=== PATIENT | male | born 1980 | race African-American/Black ===

== ENCOUNTER 2016-08-12 14:30 | Emergency (ER) | payer MEDICAID, OTHER ==
[~2016-08-12] VITALS: Ht 177.8 cm; Wt 78.0 kg
--- NOTE | 2016-08-12 15:12 | PD ---
HPI Chief Complaint: Oral / Dental Pain or Problem Time Seen by Provider: 15:12 Travel History International Travel<30 days: No Contact w/Intl Traveler<30days: No Traveled to known affect area: No History of Present Illness HPI 35-year-old [place] male presents the emergency department with approximately one week history of dental pain in the #1 and #32 teeth. He has had swelling of the right lower jaw. He has been trying to use over-the- counter ibuprofen and anesthetic without improvement. Patient denies fever, chills, but has difficulties eating secondary to pain. He states his throat is normal. He has no local dentist. He has no known drug allergies. His pain is currently 6 out of 10. [facility] Social History Alcohol Use: Yes Tobacco Use: No Substance Use: No Allergies-Medications (Allergen,Severity, Reaction): Coded Allergies: No Known Allergies (Unverified , 08/12/16) Review of Systems General / Constitutional: No: Fever Eyes: No: Visual changes HENT: Positive: Dental Difficulties, No: Headaches, Sore Throat, Rhinitis, Congestion, Nosebleed, Neck Stiffness, Neck Pain, Gingival Bleeding, Earache Cardiovascular: No: Chest Pain or Discomfort Respiratory: No: Shortness of Breath Gastrointestinal: No: Abdominal Pain Genitourinary: No: Dysuria Musculoskeletal: No: Pain Skin: No Rash Neurologic: No: Weakness Psychiatric: No: Depression Endocrine: No: Polydipsia Hematologic/Lymphatic: No: Easy Bruising Physical Exam Narrative GENERAL: Patient appears in mild to moderate distress. SKIN: Warm and dry. Normal color. Normal turgor. No erythema. HEAD: Atraumatic. Normocephalic. Patient has mild swelling over the right lateral lower jaw. EYES: Pupils equal and round. No scleral icterus. No injection or drainage. ENT: No nasal bleeding or discharge. Mucous membranes pink and moist. Patient is obvious caries with swollen gingiva to the #1 and #32 teeth. There is no significant abscess. Pharynx is normal. Airway is patent. Uvula is midline. TMs are clear bilaterally. NECK: Trachea midline. Supple and nontender without lymphadenopathy. CARDIOVASCULAR: Regular rate and rhythm. GASTROINTESTINAL: Abdomen soft, non-tender, nondistended. Hepatic and splenic margins not palpable. MUSCULOSKELETAL: Extremities without clubbing, cyanosis, or edema. No obvious deformities. NEUROLOGICAL: Awake and alert. No obvious cranial nerve deficits. Motor grossly within normal limits. Five out of 5 muscle strength in the arms and legs. Normal speech. PSYCHIATRIC: Appropriate mood and affect; insight and judgment normal. Data Data Orders Penicillin V Potassium (Veetids) (08/12/16 15:30) Lvew-Ukdl-Dvvf Liq (Magic Mouthwash Adul (08/12/16 15:30) [facility] Medical Decision Making Medical Screen Exam Complete: Yes Emergency Medical Condition: Yes Differential Diagnosis Dental caries. Dental pain. Dental abscess. Narrative Course Patient is felt to be medically stable at time of exam. Patient is given his first dose of Pen-Vee K 500 mg by mouth as well as Magic mouthwash. Patient was discharged home with Pen-Vee K 500 mg 4 times a day 10 days. Patient is given ibuprofen 800 mg 3 times daily with food #30. Patient is given acetaminophen 500 mg 2 tabs every 6 hours when necessary pain # 16. Patient is given a prescription for Magic mouthwash 5-10 mL swish and spit every 2 hours when necessary for dental pain 120 mL with no refill. Patient is to seek dental care as soon as possible. Patient can return to emergency Department with worsening symptoms as needed. Diagnosis Primary Impression: Dental abscess Referrals: Dentist Patient Instructions: Dental Abscess (ED), Dental Caries (ED), General Instructions Additional Instructions: Patient is given his first dose of Pen-Vee K 500 mg by mouth as well as Magic mouthwash. Patient was discharged home with Pen-Vee K 500 mg 4 times a day 10 days. Patient is given ibuprofen 800 mg 3 times daily with food #30. Patient is given acetaminophen 500 mg 2 tabs every 6 hours when necessary pain # 16. Patient is given a prescription for Magic mouthwash 5-10 mL swish and spit every 2 hours when necessary for dental pain 120 mL with no refill. Patient is to seek dental care as soon as possible. Patient can return to emergency Department with worsening symptoms as needed. Med/Other Pt SpecificInfo: Prescription(s) given Scripts Penicillin V Potassium 500 Mg [id number] Mg PO Q6H 10 Days Ref 0 Prov:Aicha Carey MD 08/12/16 Udmdrfjj-Iirogshvyozmnes-Gusqwilne Liq (Magic Mouthwash Adult Liq)120 Ml Susp5 Ml SWISH-SWAL ACHS #120 ML Each 5 mL contains: Nystatin 200,000 units, Diphenhydramine 4.25 mg, Viscous Lidocaine 10 mg, Louis syrup 0.8 mL Prov:Aicha Carey MD 08/12/16 Ibuprofen 800 Mg [id number] Mg PO Q8H PRN (Pain/Inflammation) #30 TAB Prov:Aicha Carey MD 08/12/16 Acetaminophen (Non-Aspirin Pain Relief ES)500 Mg [id number] Mg PO Q6HR PRN (PAIN) # 60 TAB Prov:Aicha Carey MD 08/12/16 Disposition: 01 DISCHARGE HOME Condition: Stable Santos Sanon Aug 12, 2016 15:12
[2016-08-12] MEDS ORDERED: PENI500T PO (15:26)
[2016-08-12] MEDS ORDERED: MAGICADU2 SWISH-SWAL (15:26)
[2016-08-12] MEDS ORDERED: IBUP800T23 PO (15:26)
[2016-08-12] MEDS ORDERED: NON-500T13 PO (15:26)
[2016-08-12] MEDS ORDERED: NYSTAT/DIPHENHY/LIDO MOUTHWASH (Adult) 120ML SWISH-SPIT ONE (15:30)
[2016-08-12] MEDS ORDERED: PENICILLIN V POTASSIUM 500 MG TAB PO ONE (15:30)
== END 2016-08-12 16:31 | disposition home or self-care (01) ==
LOC: NEPK 14:30
DX: K04.7 Periapical abscess without sinus (principal)
CPT/HCPCS: 99284